=== PATIENT | male | born 1995 | race Caucasian/White ===

== ENCOUNTER 2017-08-19 19:10 | Emergency (ER) | payer SELFPAY ==
[~2017-08-19] VITALS: Ht 162.6 cm; Wt 66.0 kg
[2017-08-19] MEDS ORDERED: ACETAMINOPHEN 325MG TABLET PO ONE (20:45)
[2017-08-19 21:13] LABS: BASOPHILS % 0.7 % (0.0-2.0); EOSINOPHILS % 1.5 % (0.0-5.0); HEMATOCRIT. 45.9 % (42.0-52.0); HEMOGLOBIN. 16.3 g/dL (14.0-18.0); LYMPHOCYTES % 30.4 % (20.0-50.0); MEAN CORPUSCULAR HEMOGLOBIN 33.1 pg (28.0-32.0); MEAN CORPUSCULAR VOLUME 93.3 fL (80.0-94.0); MEAN PLATELET VOLUME 8.1 fl (7.4-10.4); NEUTROPHILS % 59.4 % (40.0-76.0); PLATELET 327 x1000/uL (130-400); RED BLOOD CELL COUNT 4.92 mill/uL (4.7-6.1); RED CELL DISTRIBUTION WIDTH 12.9 % (11.6-14.6)
[2017-08-19 21:16] LABS: CHLORIDE 107 mEq/L (98-107); PROTHROMBIN TIME 10.3 sec (9.4-11.6)
[2017-08-19 21:18] LABS: CARBON DIOXIDE 22 mEq/L (21-32)
[2017-08-19 21:21] LABS: ETHANOL BLOOD 226 mg/dL
[2017-08-19] MEDS ORDERED: KETOROLAC 30MG/ML VIAL IM ONE (22:15)
[2017-08-19 22:33] VITALS: BP 113/72
== END 2017-08-19 23:06 | disposition home or self-care (01) ==
LOC: ER 20:14
DX: R51 Headache (principal); F17.200 Nicotine dependence, unspecified, uncomplicated; R79.1 Abnormal coagulation profile
CPT/HCPCS: 36415; 70450; 80048; 85025; 85610; 96372; 99285; G0482; J1885; Z7610

== ENCOUNTER 2017-08-24 19:20 | Emergency (ER) | payer SELFPAY ==
[~2017-08-24] VITALS: Ht 162.6 cm; Wt 60.0 kg
[2017-08-24 21:41] LABS: BASOPHILS % 0.5 % (0.0-2.0); EOSINOPHILS % 0.5 % (0.0-5.0); HEMATOCRIT. 46.1 % (42.0-52.0); HEMOGLOBIN. 15.8 g/dL (14.0-18.0); LYMPHOCYTES % 24.2 % (20.0-50.0); MEAN CORPUSCULAR HEMOGLOBIN 32.1 pg (28.0-32.0); MEAN CORPUSCULAR VOLUME 93.5 fL (80.0-94.0); MEAN PLATELET VOLUME 7.9 fl (7.4-10.4); MONOCYTES % 8.2 % (2.0-8.0); NEUTROPHILS % 66.6 % (40.0-76.0); PLATELET 317 x1000/uL (130-400); RED BLOOD CELL COUNT 4.93 mill/uL (4.7-6.1); RED CELL DISTRIBUTION WIDTH 13.1 % (11.6-14.6)
[2017-08-24 21:49] LABS: CHLORIDE 108 mEq/L (98-107)
[2017-08-24 21:55] LABS: CARBON DIOXIDE 19 mEq/L (21-32); ETHANOL BLOOD 179 mg/dL
[2017-08-24 22:09] VITALS: BP 112/71
[2017-08-24] MEDS ORDERED: IBUPROFEN 600MG TABLET PO ONE (22:15)
== END 2017-08-24 22:42 | disposition home or self-care (01) ==
LOC: ER 20:23
DX: F10.129 Alcohol abuse with intoxication, unspecified (principal); F41.9 Anxiety disorder, unspecified; R51 Headache; Y90.6 Blood alcohol level of 120-199 mg/100 ml
CPT/HCPCS: 36415; 71010; 80053; 85025; 93005; 99285; G0482; Z7610